=== PATIENT | female | born 1955 | race Caucasian/White ===

== ENCOUNTER → 2019-09-05 12:36 | Outpatient (CLI) | payer MEDICARE, SELFPAY ==
--- NOTE | ~2019-09-05 | MM_ITS ---
EXAMINATION: MM screening jose miguel BI w veronique HISTORY: Screening mammogram TECHNIQUE: Craniocaudal and mediolateral oblique 3-D tomosynthesis images were obtained and synthetic 2-D images were generated. CAD analysis was submitted and interpreted. COMPARISON: Comparison to multiple prior studies sequentially, with oldest reviewed study dated 2015. BREAST PARENCHYMAL COMPOSITION: The breasts are almost entirely fatty. FINDINGS: There is no evidence of suspicious mass, calcification, or architectural distortion to sugg est malignancy in either breast. There has been no suspicious interval change. IMPRESSION: 1. No mammographic evidence of malignancy. 2. Recommend routine screening mammography in one year. BI-RADS Category 1: Negative Reviewed, dictated and finalized at location D.
== END ==
PROVIDERS: Visit Provider Nurse Practitioner
DX: Z12.31 Encounter for screening mammogram for malignant neoplasm of breast (principal)
CPT/HCPCS: 77063; 77067

== ENCOUNTER 2020-02-01 11:39 | Outpatient (CLI) | payer MEDICARE, SELFPAY ==
--- NOTE | ~2020-02-01 | XR_ITS ---
EXAMINATION: XR knee RT 3V DATE: 02/01/2020 12:07 INDICATION: Chronic right knee pain. TECHNIQUE: 3 views of right knee were obtained. COMPARISON: Right knee radiographs 09/18/2014 FINDINGS: Bone alignment is normal. No fracture. There is mild osteoarthritis of medial and patellofe moral compartments. No knee joint effusion. IMPRESSION: 1. Mild right knee osteoarthritis. Reviewed, dictated and finalized at location B.
== END 2020-02-01 11:40 | disposition home or self-care (01) ==
PROVIDERS: PCP Internal Medicine; Visit Provider Clinical Nurse Specialist
DX: M25.569 Pain in unspecified knee (principal); M17.11 Unilateral primary osteoarthritis, right knee
CPT/HCPCS: 73562

== ENCOUNTER 2020-05-13 13:44 | Outpatient (CLI) | payer MEDICARE, SELFPAY ==
--- NOTE | ~2020-05-13 | CT_ITS ---
EXAMINATION:CT lung screening DATE: 05/13/2020 13:58 INDICATION: Personal history of tobacco dependence. Smoker who quit 9 years ago with 30 pack year his tory. TECHNIQUE: Computed tomography (CT) of the chest was performed without intravenous contrast. Automate d exposure control and iterative reconstruction technique were employed. The dose-length product (DLP ) was 266.77 mGy-cm. COMPARISON: None. FINDINGS: There is moderate emphysema. There is mild atelectasis bilaterally. There is a 5 mm nodule in right middle lobe. A calcified right lung nodule and calcified mediastinal lymph nodes are consist ent with old granulomatous disease. No pleural effusion. The heart size is normal. There are coronary artery calcifications. No pericardial effusion. There is a 12 mm mass in left adrenal gland measurin g low-attenuation, consistent with an adenoma. There is mild thoracic spondylosis. There is mild associate professor of archaeology simona anterior wedging of multiple vertebral bodies. IMPRESSION: 1. Lung-RADS category 2: Benign appearance or behavior. Continue annual screening with noncontrast lo w-dose chest CT in 12 months. Reviewed, dictated and finalized at location A. TY MANAGER IMPRESSION: 1. Lung-RADS category 2: Benign appearance or behavior. Continue annual screeni ng with noncontrast low-dose chest CT in 12 months.
== END 2020-05-13 13:45 | disposition home or self-care (01) ==
PROVIDERS: PCP Internal Medicine; Visit Provider Clinical Nurse Specialist
DX: Z12.2 Encounter for screening for malignant neoplasm of respiratory organs (principal); Z87.891 Personal history of nicotine dependence
CPT/HCPCS: G0297

== ENCOUNTER 2021-04-25 11:19 | Outpatient (CLI) | payer MEDICARE, SELFPAY ==
--- NOTE | ~2021-04-25 | MR_ITS ---
EXAMINATION: MR lumbar spine wo con DATE: 04/25/2021 12:12 INDICATION: Lumbar radiculopathy. Chronic low back pain. TECHNIQUE: Magnetic resonance imaging (MRI) of the lumbar spine was performed without intravenous con trast. Sequences included sagittal T2-weighted FSE, sagittal T2-weighted FS FSE, sagittal T1-weighted FSE, and axial T2-weighted FSE. COMPARISON: Lumbar spine MRI 08/09/2017 FINDINGS: There is 3 mm retrolisthesis of L4 on L5. There is mild chronic anterior wedging of T12, L1 , L2, and L3 vertebral bodies. There is mildly decreased disc height at L1-L2 and severely decreased disc height at L4-L5 with endplate remodeling. The distal spinal cord signal intensity is normal. The conus medullaris is at T12-L1. The following disc levels are specifically discussed: L1-L2: The disc is bulging and has an annular fissure. There is mild bilateral facet joint osteoarthr itis. There is mild bilateral neural foraminal stenosis. There is mild central canal stenosis. L2-L3: The disc is mildly bulging. There is severe bilateral facet joint osteoarthritis. There is mil d bilateral neural foraminal stenosis. There is no central canal stenosis. L3-L4: The disc is mildly bulging. There is severe bilateral facet joint osteoarthritis. There is mod erate right and mild left neural foraminal stenosis. There is mild central canal stenosis. L4-L5: The disc is bulging and has an annular fissure. There is mild right and moderate left facet mendez int osteoarthritis. There is moderate bilateral neural foraminal stenosis. There is severe central ca nal stenosis. L5-S1: The disc does not extend beyond the endplate margin. There is severe right and moderate left f acet joint osteoarthritis. There is mild bilateral neural foraminal stenosis. There is no central can al stenosis. IMPRESSION: 1. Severe lumbar spondylosis, worst at L4-L5, stable from 08/09/2017. Reviewed, dictated and finalized at location A. P MIXER
== END 2021-04-25 11:20 ==
LOC: MICIMG 11:20
PROVIDERS: Visit Provider Nurse Practitioner Adult Health
DX: M54.16 Radiculopathy, lumbar region (principal); M47.816 Spondylosis without myelopathy or radiculopathy, lumbar region
CPT/HCPCS: 72148

== ENCOUNTER 2021-05-19 12:13 | Outpatient (CLI) | payer MEDICARE, SELFPAY ==
--- NOTE | ~2021-05-19 | CT_ITS ---
EXAMINATION: CT lung screening DATE: 05/19/2021 12:40 INDICATION: Personal history of nicotine dependence TECHNIQUE: Computed tomography (CT) of the chest was performed without intravenous contrast. The dose -length product was 221.82 mGy-cm. Automated exposure control and iterative reconstruction technique were employed. COMPARISON: CT dated 05/13/2020 FINDINGS: Heart size normal. No significant pleural or pericardial effusion. No thoracic lymphadenopa thy. Mild atherosclerosis. Upper abdomen is unremarkable. There is moderate-severe emphysema. Stable 4-5 mm right middle lobe nodule. There is a 3 mm left upper lobe nodule, unchanged. No new pulmonary nodules or masses. No endobronchial lesions. No pneumothorax. No focal airspace consolidation. There are multiple mild wedge deformities of the lower thoracic spine, likely chronic. No acute osseous abn ormality. Mild thoracic spondylosis. IMPRESSION: 1. Lung-RADS category 2: Benign appearance or behavior. Continue annual screening with noncontrast lo w-dose chest CT in 12 months. Reviewed, dictated and finalized at location B. LLITE DISH TECHNICIAN IMPRESSION: 1. Lung-RADS category 2: Benign appearance or behavior. Continue annual screeni ng with noncontrast low-dose chest CT in 12 months.
== END 2021-05-19 12:14 | disposition home or self-care (01) ==
PROVIDERS: PCP Internal Medicine; Visit Provider Nurse Practitioner
DX: Z12.2 Encounter for screening for malignant neoplasm of respiratory organs (principal); Z87.891 Personal history of nicotine dependence
CPT/HCPCS: 71271

== ENCOUNTER → 2021-06-02 11:32 | Outpatient (CLI) | payer MEDICARE, SELFPAY ==
--- NOTE | ~2021-06-02 | MM_ITS ---
EXAMINATION: MM screening [facility] BI w veronique HISTORY: Screening mammogram TECHNIQUE: Craniocaudal and mediolateral oblique 3-D tomosynthesis images were obtained and synthetic 2-D images were generated. CAD analysis was submitted and interpreted. COMPARISON: 09/05/2019, 02/23/2018, 10/07/2015 BREAST PARENCHYMAL COMPOSITION: The breasts are almost entirely fatty. FINDINGS: There is no evidence of suspicious mass, calcification, or architectural distortion to sugg est malignancy in either breast. There has been no suspicious interval change. IMPRESSION: 1. No mammographic evidence of malignancy. 2. Recommend routine screening mammography in one year. BI-RADS Category 1: Negative Reviewed, dictated and finalized at location A. MAKER MACHINE TENDER
== END ==
PROVIDERS: PCP Internal Medicine; Visit Provider Nurse Practitioner
DX: Z12.31 Encounter for screening mammogram for malignant neoplasm of breast (principal)
CPT/HCPCS: 77063; 77067

== ENCOUNTER → 2021-08-28 12:43 | Outpatient (CLI) | payer MEDICARE, SELFPAY ==
--- NOTE | ~2021-08-28 | DEXA_ITS ---
Bone Density Report Name: BRENDA HUERTA Age: 66 Sex: Female Ethnicity: White Date of : 1955 Indication: osteopenia; height loss; postmenopausal Referring Provider: Emily Rinaldi Study: Bone densitometry was performed. Exam Date: August 28, 2021 Accession number: [id number] Bone Density: Region BMD T-score Z-score Classification AP Spine (L1-L4) 0.991 -0.5 1.5 Normal Femoral Neck (Left) 0.550 -2.7 -1.0 Osteoporosis Total Hip (Left) 0.865 -0.6 0.8 Normal Femoral Neck (Right) 0.767 -0.7 1.0 Normal Total Hip (Right) 0.792 -1.2 0.2 Osteopenia Total Hip Mean 0.829 -0.9 0.5 Normal World Health Organization criteria for BMD impression classify patients as: Normal (T-score at or above -1.0), Osteopenia (T-score between -1.0 and -2.5), or Osteoporosis (T-score at or below -2.5). 10-year Fracture Risk: FRAX not reported because: Some T-score for Spine Total or Hip Total or Femoral Neck at or below -2.5 Previous Exams: Region Exam Age BMD T-score BMD Change BMD Change Date g/cm2 vs Baseline vs Previous AP Spine(L1-L4) 08/28/2021 66 0.991 -0.5 0.039 0.039 10/07/2015 60 0.952 -0.9 Total Hip(Left) 08/28/2021 66 0.865 -0.6 -0.008 -0.008 10/07/2015 60 0.873 -0.6 Total Hip(Right) 08/28/2021 66 0.792 -1.2 0.008 0.008 10/07/2015 60 0.784 -1.3 *Denotes significance at 95% confidence level, LSC for AP Spine = 0.022 g/cm2, LSC for Total Hip = 0.027 g/cm2 Clinical Information Provided by Patient: Has used the following medications: Vitamin D, LEVOTHYROXINE Patient maximum height was 67.0 Menopause Age: 48 No regular weight bearing exercise Drinks caffeinated beverages Onset of menses at age 9 Number of children 2 Impression: The patient has osteoporosis, based on the Left Femoral Neck T-score. No significant bone loss was observed. Discussion: INCREASED RISK OF FRACTURE. BONE DENSITY IS UNDESIRABLY LOW AT ONE OR MORE SKELETAL SITES, CONSISTENT WITH POSTMENOPAUSAL OSTEOPOROSIS. This patient's lowest T-score meets the World Health Organization's (WHO) criteria for osteoporosis at one or more sites (T-score -2.5 or below). In untreated patients, the risk of osteoporotic fracture increases approximately two-fold for each 1.0 SD decrease in T-score. Low bone density is not the only risk factor for fracture; also consider factors such as patient's age, frailty or poor health, risk of fall
== END ==
PROVIDERS: PCP Internal Medicine; Visit Provider Nurse Practitioner
DX: Z78.0 Asymptomatic menopausal state (principal); M81.0 Age-related osteoporosis without current pathological fracture; M85.851 Other specified disorders of bone density and structure, right thigh
CPT/HCPCS: 77080

== ENCOUNTER → 2022-06-04 14:50 | Outpatient (CLI) | payer MEDICARE, SELFPAY ==
--- NOTE | ~2022-06-04 | CT_ITS ---
EXAMINATION: CT lung screening DATE: 06/04/2022 15:07 INDICATION: Personal history of nicotine dependence, prior smoker with 30 pack year history TECHNIQUE: Computed tomography (CT) of the chest was performed without intravenous contrast. The dose -length product (DLP) was 198.83 mGy-cm. Automated exposure control and iterative reconstruction tech 911 View were employed. COMPARISON: 05/19/2021 FINDINGS: There is severe emphysema. There is a 4 mm nodule of the right middle lobe. No new pulmonar y nodules are identified. No pleural effusion or pneumothorax. No pathologically enlarged thoracic ly mph nodes are identified. The heart size is normal. There are healing anterolateral fractures of the right fourth and fifth ribs. Calcified pulmonary nodules and calcified mediastinal lymph nodes are co nsistent with old granulomatous disease. There is mild thoracic spondylosis. IMPRESSION: 1. Lung-RADS category 2: Benign appearance or behavior. Continue annual screening with noncontrast lo w-dose chest CT in 12 months. Reviewed, dictated and finalized at location A. MAKER PLASTIC MOLDS IMPRESSION: 1. Lung-RADS category 2: Benign appearance or behavior. Continue annual screeni ng with noncontrast low-dose chest CT in 12 months.
== END ==
PROVIDERS: PCP Internal Medicine; Visit Provider Nurse Practitioner
DX: Z12.2 Encounter for screening for malignant neoplasm of respiratory organs (principal); Z87.891 Personal history of nicotine dependence
CPT/HCPCS: 71271

== ENCOUNTER 2022-09-01 10:08 | Outpatient (CLI) | payer MEDICARE, SELFPAY ==
--- NOTE | ~2022-09-01 | XR_ITS ---
EXAMINATION: XR scoliosis survey, XR lumbar spine min 4V DATE: 09/01/2022 10:54 INDICATION: Chronic back pain. Right hip replacement. TECHNIQUE: 1. Anteroposterior and lateral views of the spine recheck obtained on 3 separate overlapping images o f the cervical, thoracic and lumbar spine. 2. Anteroposterior and lateral in neutral, flexion and extension views of the lumbar spine, and cone- down lateral view of the lumbosacral junction were obtained. COMPARISON: Lumbar spine MR dated 04/25/2021 FINDINGS: Scoliosis series: 3 degree rightward pelvic tilt with the right iliac crest approximately 8 mm higher than the left. Th ere is approximately 5 degree rightward tilt of the spine without evident scoliosis. Mild upper thora cic kyphosis with chronic appearing mild anterior wedging of a few mid thoracic vertebral bodies. Mil d cervical and thoracic spondylosis. Partially visualized right total hip arthroplasty which appears in near-anatomic alignment. Patient is edentulous. Lungs appear clear with respiratory motion blurrin g at the lung bases. No pleural effusion or pneumothorax. Lumbar spine: Partial straightening of the normal lumbar lordosis with mildly decreased motion with flexion and ext ension. Vertebral body heights are normal. Moderate to severe disc height loss at L4-L5. Mild disc he ight loss at L5-S1. IMPRESSION: 1. Mild rightward pelvic tilt with similar mild degree of rightward tilt of the spine and AP imaging without scoliosis. 2. Mild thoracic kyphosis with mild anterior wedging of a few mid thoracic vertebral bodies. 3. Moderate to severe spondylosis at L4-L5. Otherwise mild cervical, thoracic and lumbar spondylosis. Reviewed, dictated and finalized at location B. IMPRESSION: 1. Mild rightward pelvic tilt with similar mild degree of rightward tilt of the spine and AP imaging without scoliosis. 2. Mild thoracic kyphosis with mild anterior wedging of a few mid thoracic vert ebral bodies. 3. Moderate to severe spondylosis at L4-L5. Otherwise mild cervical, thoracic a nd lumbar spondylosis.
== END 2022-09-01 10:09 | disposition home or self-care (01) ==
PROVIDERS: PCP Internal Medicine; Visit Provider Neurological Surgery
DX: M47.896 Other spondylosis, lumbar region (principal)
CPT/HCPCS: 72082; 72110

== ENCOUNTER 2022-10-07 14:38 | Outpatient (CLI) | payer MEDICARE, SELFPAY ==
--- NOTE | ~2022-10-07 | MR_ITS ---
MRI of the lumbar spine Clinical History: Stenosis Technique: Axial T2-weighted images, and sagittal T1-weighted, T2-weighted, and T2 fat-sat images wer e acquired. COMPARISON: 04/25/2021 Findings: There is no fracture or subluxation of the lumbar spine. Vertebral bodies maintain normal h eight and alignment. No suspicious bone marrow signal abnormality seen. At L1-L2, there is mild to moderate degenerative disc narrowing with mild disc bulge and mild facet j oint hypertrophy. No spinal canal stenosis or neural foraminal narrowing. At L2-L3, there is moderate to advanced facet arthropathy bilaterally. No significant disc bulge or h erniation. No spinal canal stenosis. There is mild right neural foraminal narrowing. Left neural fora men preserved. At L3-L4, there is diffuse disc bulge and advanced facet arthropathy. There is moderate thecal sac co mpression. There is mild bilateral neural foraminal narrowing, right worse than left. At L4-L5, there is advanced degenerative disc narrowing. Disc bulge and facet arthropathy result in s evere spinal canal stenosis/thecal sac compression. There is severe left neural foraminal narrowing a nd moderate to severe right neural foraminal narrowing. At L5-S1, there is mild disc bulge with bilateral facet arthropathy, right worse than left. No hernan spinal canal stenosis. Probable mild bilateral neural foraminal narrowing present. Paravertebral soft tissues are unremarkable. Impression: Multifactorial severe spinal canal stenosis/thecal sac compression L4-L5, with advanced bilateral steve ral foraminal narrowing. Multifactorial moderate thecal sac compression L3-L4, with bilateral mild neural foraminal narrowing. Additional areas of neural foraminal narrowing, as detailed above. Reviewed, dictated and finalized at [facility]. Impression: Multifactorial severe spinal canal stenosis/thecal sac compression L4-L5, with advanced bilateral neural foraminal narrowing. Multifactorial moderate thecal sac compression L3-L4, with bilateral mild neura l foraminal narrowing. Additional areas of neural foraminal narrowing, as detailed above.
== END 2022-10-07 14:39 ==
LOC: MICIMG 14:39
PROVIDERS: PCP Internal Medicine; Visit Provider Neurological Surgery
DX: M48.062 Spinal stenosis, lumbar region with neurogenic claudication (principal); G95.20 Unspecified cord compression; Z96.641 Presence of right artificial hip joint
CPT/HCPCS: 72148

== ENCOUNTER → 2022-10-26 16:00 | Outpatient (CLI) | payer MEDICARE, SELFPAY ==
--- NOTE | ~2022-10-26 | MM_ITS ---
EXAMINATION: MM screening jose miguel BI w veronique HISTORY: Screening mammogram TECHNIQUE: Craniocaudal and mediolateral oblique 3-D tomosynthesis images were obtained and synthetic 2-D images were generated. CAD analysis was submitted and interpreted. COMPARISON: 06/02/2021, 09/05/2019, 02/23/2018 BREAST PARENCHYMAL COMPOSITION:The breasts are almost entirely fatty FINDINGS: No suspicious mass, calcification, or architectural distortion are identified in either leonides ast to suggest malignancy. There has been no suspicious interval change. IMPRESSION: No mammographic evidence of malignancy. Recommend routine screening mammography in one year. BI-RADS Category 1: Negative Reviewed, dictated and finalized at location .
== END ==
PROVIDERS: PCP Internal Medicine; Visit Provider Internal Medicine
DX: Z12.31 Encounter for screening mammogram for malignant neoplasm of breast (principal)
CPT/HCPCS: 77063; 77067

== ENCOUNTER 2023-02-14 07:37 | Outpatient (CLI) | payer MEDICARE, SELFPAY ==
--- NOTE | 2023-02-14 12:51 | WPDPFTINT ---
PFT Procedure Performed PFT Procedure Performed Plethysmography (Lung Vol) Diffusing Cap (DLCO) Flow Vol Loop Spirometry w/o Bronchodil PFT Interpretation This is a pulmonary function test with spirometry, plethysmography and diffusing capacity. The test was performed and results interpreted in accordance with the 2019 and 2005 ATS/ERS Task Force guidelines respectively using the Global Lung Function Initiative-2012 reference equations. Patient demonstrated good effort and cooperation. Reproducibility criteria were met. The quality of the spirometry maneuver was Grade A. Findings: Spirometry: There is decrease maximal expiratory airflow at all lung volumes with concave expiratory flow tracing. The contour the inspiratory flow tracing is normal. The FVC is 2.18 L, 70% predicted. The FEV1 is 1.03 L, 43% predicted. The FEV1: FVC ratio is 47%. Plethysmography: The total lung capacity is 4.66 L, 87% predicted. The functional residual capacity is 3.26 L, 106% predicted. The residual volume is 2.48 L, 109% predicted. Diffusing capacity: The diffusing capacity unadjusted for hemoglobin and carboxyhemoglobin is 13.1, 61% predicted. The diffusing capacity adjusted for alveolar volume is 4.20, 100% predicted. Impression: There is a severe obstructive abnormality. Lung volumes are normal. The diffusing capacity unadjusted for hemoglobin and carboxyhemoglobin is mildly decreased and normalizes when adjusted for alveolar volume. There are no prior studies for comparison
== END 2023-02-14 07:38 | disposition home or self-care (01) ==
PROVIDERS: PCP Internal Medicine; Visit Provider Internal Medicine
DX: J44.9 Chronic obstructive pulmonary disease, unspecified (principal); R94.2 Abnormal results of pulmonary function studies
CPT/HCPCS: 94375; 94726; 94729

== ENCOUNTER 2023-03-02 08:52 | Outpatient (CLI) | payer MEDICARE, SELFPAY ==
--- NOTE | ~2023-03-02 | NM_ITS ---
EXAMINATION: NM harry stress w perfusion DATE: 03/02/2023 11:35 INDICATION: Abnormal electrocardiogram. Preop. TECHNIQUE: Rest images were obtained following intravenous administration of 10.9 mCi Tc99m tetrofosm in (Myoview). The patient was infused intravenously with Lexiscan (regadenoson). Then, 34.5 mCi Tc99m tetrofosmin (Myoview) was administered intravenously, and stress images were obtained. Data was dre nstructed into short axis and horizontal and vertical long axis SPECT images. Gated SPECT images were also obtained. COMPARISON: Myocardial perfusion imaging 02/01/2019 FINDINGS: There is no definite reversible or fixed perfusion abnormality to suggest ischemia or infar ction. There is no segmental wall motion abnormality. Left ventricular ejection fraction measures > 70%. IMPRESSION: 1. No definite ischemia or infarct. 2. Normal left ventricular ejection fraction measuring >70%. Reviewed, dictated and finalized at location A.
--- NOTE | 2023-03-02 09:25 | EST_ITS ---
Patient Info Name: Francia Bradley Age: 67 years : 1955 Gender: Female Ht: 66 in Wt: 230 lbs BSA: 2.25 m2 HR: 65 bpm BP: 128 / 82 mmHg Exam Date: 03/02/2023 10:04 AM Exam Location: [facility] Stress Patient Status: Outpatient Admit Date: 03/02/2023 Staff Ordering Physician: Avila Gomez DO Attending Provider: Avila Gomez DO Exercise Technologist: Dayanna Dawson RDCS Exercise Physician: Addi Rosenbaum DO Exam Type: CA stress harry w NM Study Info A regadenoson stress test was performed. Summary 1. 1. Negative lexiscan stress test for ischemic ST changes by ECG criteria. 2. 2. Stable hemodynamics throughout the test. 3. 3. Nuclear scan to follow and will be reported separately. Please correlate with it. 4. 4. Patient informed of the above results. Protocol: Lexiscan Stress ECG Details Stage: REST Duration (min): 3 min : 51 sec HR (bpm): 61 SBP (mmHg): 126 DBP (mmHg): 82 Stage: REST Duration (min): 8 min : 59 sec HR (bpm): 63 SBP (mmHg): 126 DBP (mmHg): 82 Stage: STAGE 1 Duration (min): 1 min : 0 sec HR (bpm): 66 SBP (mmHg): 125 DBP (mmHg): 87 Stage: RECOVERY Duration (min): 1 min : 0 sec HR (bpm): 84 SBP (mmHg): 125 DBP (mmHg): 87 Stage: RECOVERY Duration (min): 2 min : 0 sec HR (bpm): 86 SBP (mmHg): 125 DBP (mmHg): 87 Stage: RECOVERY Duration (min): 2 min : 29 sec HR (bpm): 83 SBP (mmHg): 119 DBP (mmHg): 89 Rest HR: 63 bpm Peak HR: 86 bpm Rest Sys BP: 126 mmHg Peak Sys BP: 125 mmHg Max Pred HR: 151 bpm % Max Pred HR: 57 % Target HR: 128 bpm Max RPP: 10,750 bpm*mmHg Termination Reason: Completed protocol Cardiac Symptoms: Shortness of breath Total Time: 1 min : 0 sec Rest Gallardo BP: 82 mmHg Peak Gallardo BP: 87 mmHg Total Dose: 0.4 mg Resting ECG Sinus rhythm, RBBB, cannot r/o septal infarct, age indeterminate. Stress ECG No ST changes. Arrhythmias None. Report Signatures
== END 2023-03-02 08:53 | disposition home or self-care (01) ==
PROVIDERS: PCP Internal Medicine; Visit Provider Internal Medicine
DX: Z01.818 Encounter for other preprocedural examination (principal); Z91.89 Other specified personal risk factors, not elsewhere classified; R07.9 Chest pain, unspecified
CPT/HCPCS: 78452; 93017; A9502; J2785

== ENCOUNTER 2023-03-03 13:00 | Outpatient (RCR) | payer MEDICARE, SELFPAY ==
[2023-01-18 11:07] VITALS: BMI 37.2
[2023-01-18 13:56] VITALS: BMI 37.2
[2023-03-03 13:12] VITALS: BMI 37.0; BMI 37.2
== END 2023-04-04 11:12 | disposition home or self-care (01) ==
LOC: ANHDMC 13:00
PROVIDERS: PCP Internal Medicine; Visit Provider Internal Medicine
DX: E11.9 Type 2 diabetes mellitus without complications (principal); E66.9 Obesity, unspecified; Z71.3 Dietary counseling and surveillance
CPT/HCPCS: 97802; 97803

== ENCOUNTER → 2023-08-17 14:00 | Outpatient (CLI) | payer MEDICARE, SELFPAY ==
--- NOTE | ~2023-08-17 | CT_ITS ---
EXAMINATION: CT lung screening DATE: 08/17/2023 14:13 INDICATION: Z87.891 - Personal history of nicotine dependence TECHNIQUE: Computed tomography (CT) of the chest was performed without intravenous contrast. Addition al 3D reconstructions utilizing coronal maximum intensity projection (MIP) were performed. Automated exposure control and iterative reconstruction technique were employed. The dose-length product was 20 3.51 mGy-cm. COMPARISON: 06/04/2022 and 05/19/2021 FINDINGS: Moderate to severe emphysema with mild biapical pleural-parenchymal scarring. Unchanged pleural-based 4 mm right middle lobe nodule. Unchanged 3 mm nodule along a linear subpleural atelectasis/scarring in the superior segment of the left lower lobe. No new or enlarging pulmonary nodules, pneumonia, pul monary edema or pleural effusion. Heart size is normal. Atherosclerotic coronary artery calcific loca tion and aortic valve calcific is. Thoracic aorta is normal in caliber. No pathologically enlarged th oracic lymphadenopathy. Mild to moderate thoracic spondylosis. IMPRESSION: 1. Lung-RADS category 2: Benign appearance or behavior. Continue annual screening with noncontrast lo w-dose chest CT in 12 months. Reviewed, dictated and finalized at location B. L BRAIDER IMPRESSION: 1. Lung-RADS category 2: Benign appearance or behavior. Continue annual screeni ng with noncontrast low-dose chest CT in 12 months.
== END ==
PROVIDERS: PCP Internal Medicine; Visit Provider Internal Medicine
DX: Z12.2 Encounter for screening for malignant neoplasm of respiratory organs (principal); Z87.891 Personal history of nicotine dependence
CPT/HCPCS: 71271

== ENCOUNTER 2023-12-13 13:55 | Outpatient (CLI) | payer MEDICARE, SELFPAY ==
--- NOTE | ~2023-12-13 | MM_ITS ---
EXAMINATION: MM screening jose miguel BI w veronique HISTORY: Screening mammogram TECHNIQUE: Craniocaudal and mediolateral oblique 3-D tomosynthesis images were obtained and synthetic 2-D images were generated. CAD analysis was submitted and interpreted. COMPARISON: 10/26/2022, 06/02/2021, 09/05/2019 BREAST PARENCHYMAL COMPOSITION:Not Dense. The breasts are almost entirely fatty FINDINGS: No suspicious mass, calcification, or architectural distortion are identified in either leonides ast to suggest malignancy. There has been no suspicious interval change. IMPRESSION: No mammographic evidence of malignancy. Recommend routine screening mammography in one year. BI-RADS Category 1: Negative Reviewed, dictated and finalized at location .
== END 2023-12-13 13:56 ==
LOC: MICIMG 12-14 06:55
PROVIDERS: PCP Internal Medicine; Visit Provider Internal Medicine
DX: Z12.31 Encounter for screening mammogram for malignant neoplasm of breast (principal)
CPT/HCPCS: 77063; 77067

== ENCOUNTER 2024-02-09 10:10 | Emergency (ER) | payer MEDICARE, MEDICAID, SELFPAY ==
--- NOTE | ~2024-02-09 | XR_ITS ---
EXAMINATION: XR chest 2V DATE: 02/09/2024 10:42 INDICATION: Shortness of breath. Cough. Right-sided pleuritic chest pain. TECHNIQUE: Frontal and lateral views of the chest were obtained. COMPARISON: Chest 2 views 10/06/2016, chest CT 08/17/2023 FINDINGS: There is mild scarring at the lung apices. There are lucencies in the lungs, consistent wit h emphysema. No pleural effusion or pneumothorax. The heart size is normal. There is a chronic compre ssion fracture in mid thoracic spine. There are old healed right rib fractures. IMPRESSION: 1. Mild scarring at the lung apices. 2. Emphysema. Reviewed, dictated and finalized at location A.
--- NOTE | ~2024-02-09 | CT_ITS ---
EXAMINATION:CT diagnostic chest w con DATE: 02/09/2024 12:09 INDICATION: Shortness of breath. TECHNIQUE: Computed tomography (CT) of the chest was performed with 75 mL Omnipaque 350 intravenous c ontrast. Automated exposure control and iterative reconstruction technique were employed. The dose-le ngth product (DLP) was 461.22 mGy-cm. COMPARISON: Chest CT 08/17/2023 FINDINGS: There is moderate emphysema. There is mild atelectasis bilaterally. There is a 4 mm nodule in right middle lobe, benign. No pleural effusion. Calcified right hilar and mediastinal lymph nodes are consistent with old granulomatous disease. The heart size is normal. There are coronary artery ca lcifications. No pericardial effusion. The gallbladder is distended. There is mild chronic anterior w edging of multiple vertebral bodies. There is mild thoracic spondylosis. IMPRESSION: 1. Moderate emphysema. 2. Gallbladder distention, which may be secondary to fasting. Correlate with physical exam to exclude acute cholecystitis. Reviewed, dictated and finalized at location A. IMPRESSION: 1. Moderate emphysema. 2. Gallbladder distention, which may be secondary to fasting. Correlate with ph ysical exam to exclude acute cholecystitis.
[2024-02-09 10:07] VITALS: BP 144/65; PULSE 60; RESP 23; TEMP 36.3; O2SAT 100
--- NOTE | 2024-02-09 10:20 | ECG_ITS ---
Test Date: 2024-02-09 10:17:02 Measurements Intervals [place] Rate: 61 P: 59 [place]: 167 QRS: 94 QRSD: 142 T: 44 QT: 432 QTc: 435 Interpretive Statements SINUS RHYTHM RIGHT BUNDLE BRANCH BLOCK [120+ ms QRS DURATION, UPRIGHT V1, 40+ ms S IN I/aVL/V4/V5/V6] No previous ECG available for comparison Electronically Signed On 02-09-2024 15:13:47 CDT by Gagandeep Landrum M.D.
--- NOTE | 2024-02-09 10:43 | ED.CHESTPAIN ---
HPI - Chest Pain General Chief Complaint: Chest Pain Stated Complaint: CP Time Seen by Provider: 02/09/24 10:17 Source: patient, EMS and old records reviewed Mode of arrival: EMS Limitations: no limitations History of Present Illness HPI narrative: Patient is a 68-year-old female, with PMH of COPD/asthma, DM, HTN, HLD, who presents the ED via EMS with report of shortness of breath. Patient reports having increased difficulty breathing over the last 1 week, states it has been progressively worsening. Reports dyspnea worse with exertion. Reports pain throughout her right sided back/flank region with deep breathing. Pain worse with movement as well. Has not taken anything for pain today. She does report having a mild cough, intermittent wheezing. She has inhalers at home which she has been using. Denies sick contacts. Denies CP, known fevers, hemoptysis, lower extremity pain or swelling. Patient was given ASA 324 mg and 1NTG en route to the ED by EMS w/o change in pleuritic pain. Related Data Home Medications Medication Instructions Recorded Confirmed omega-3 fatty acids 1,000 mg 1,000 mg PO DAILY 01/30/20 12/12/23 capsule (Fish Oil Concentrate) vitamin A 2,400 mcg capsule 2,400 mcg PO DAILY 09/03/21 12/12/23 Beat Root PO 1XD 09/27/23 12/12/23 Allergies Allergy/AdvReac Type Severity Reaction Status Date / Time No Known Allergies Allergy Verified 12/12/23 13:40 Review of Systems Review of Systems: All systems reviewed & are unremarkable except as noted in HPI. All systems reviewed & are unremarkable except as noted in HPI and below PMFSH Past Medical History Medical History Acquired hypothyroidism Chronic lumbar pain COPD (chronic obstructive pulmonary disease) Diabetes mellitus with hyperglycemia History of smoking 30 or more pack years Hypercalcemia Hypertension Knee pain Lumbar radiculopathy Lumbosacral spondylolysis Obesity Osteoarthritis of lumbar spine Osteopenia Type 2 diabetes mellitus without complication, without long-term current use of insulin Vitamin B 12 deficiency Surgical History Surgical History History of right hip replacement 10/15/2021 Family History Family History Father Diabetes mellitus Family history of coronary artery disease Sibling Diabetes mellitus Mother Family history of coronary artery disease Social History Social History Social History: Caffeine-coffee Smoking status: Former smoker Smoking end date: 06/20/10 Alcohol intake: never Do You Feel Safe in your Home?: Yes Lack of Transportation: No Lack of Food: Never True Current Housing: I Have Housing Concerned About Future Housing: No Difficulty Paying Gas/Electric Bills: No Difficulty Paying for Meds: YES Currently Unemployed: Decline to Answer Education: High School Diploma/GED Difficulty w/ Childcare or Family Care: No Spiritual care concerns: No Exam Narrative: GENERAL: elderly, chronically ill-appearing, obese with BMI of 36.7, non-toxic, in no acute distress. HEAD: Normocephalic, atraumatic. RESPIRATORY: Airway patent, respirations nonlabored. Clear to auscultation bilaterally. no significant focal lung sounds. No wheezing heard. No stridor or distress. CARDIOVASCULAR: Regular rate and rhythm without murmurs, rubs, or gallops. ABDOMINAL: Soft, nontender, nondistended. Normoactive BS. MUSCULOSKELETAL: Moves all extremities. No gross deformities. No lower extremity edema. No calf tenderness. TTP throughout right posterior rib cage/back, reproducing pain. No skin changes/rash. SKIN: Warm, dry, normal color. NEURO: A&O X3. Speech clear. Cranial nerves II-XII grossly intact. Steady gait. No ataxic movements. PSYCHIATRIC: Ap
[2024-02-09 10:55] VITALS: PULSE 65; O2SAT 97
[2024-02-09 11:02] LABS: Basophils Absolute Auto 0.1 K/mm3 (0.0-0.1); Basophils Percent Auto 0.7 % (0.2-1.2); Eosinophils Absolute Auto 0.2 K/mm3 (0-0.3); Eosinophils Percent Auto 2.1 % (0-4.4); Hematocrit 45.5 % (37.0-47.0); Hemoglobin 14.4 g/dL (12.0-15.0); Immature Granulocyte Absolute 0.05 K/mm3 (0.00-0.031); Immature Granulocyte Percent A 0.6 % (0-0.5); Lymphocytes Absolute Auto 1.97 K/mm3 (0.9-3.2); Lymphocytes Percent Auto 22.1 % (18.3-44.2); Mean Corpuscular HGB Conc 31.6 g/dl (32-36); Mean Corpuscular Volume 88.3 fl (80-100); Mean Platelet Volume 9.8 fl (7.4-10.4); Monocytes Absolute Auto 0.6 K/mm3 (0.1-0.6); Monocytes Percent Auto 6.3 % (2.6-8.5); Neutrophils Absolute Auto 6.1 K/mm3 (1.3-6.7); Neutrophils Percent Auto 68.2 % (45.5-73.1); Platelet Count Result 327 k/mm3 (150-375); Red Blood Count 5.15 M/mm3 (4.2-5.4); Red Cell Distribution Width 14.5 % (11.5-14.5); White Blood Count 8.9 K/mm3 (4.5-10.0)
[2024-02-09 11:13] LABS: Prothrombin Time 13.5 Seconds (11.1-14.7)
[2024-02-09 11:14] LABS: Partial Thromboplastin Time 26.9 Seconds (22.3-36.8)
[2024-02-09 11:16] LABS: D Dimer 0.39 ug/mL (<0.48)
[2024-02-09 11:20] LABS: Alanine Aminotransferase 20 U/L (6-35); Albumin Level 4.5 g/dL (3.5-5.1); Alkaline Phosphatase 81 U/L (38-126); Anion Gap 9 mmol/L (4-12); Aspartate Amino Transferase 23 U/L (14-36); Bilirubin,Total 0.5 mg/dL (0.2-1.3); Blood Urea Nitrogen 18 mg/dL (7-17); Carbon Dioxide 32 mmol/L (22-30); Chloride 96 mmol/L (98-107); Estimated CRCL calculation 69 ml/min; Estimated Glomerular Filt Rate > 60; Glucose 185 mg/dL (65-110); Magnesium 1.9 mg/dL (1.6-2.3); Potassium 4.3 mmol/L (3.4-5.0); Sodium 137 mmol/L (137-145)
[2024-02-09 11:26] VITALS: BP 149/71; PULSE 66; RESP 13; O2SAT 99
[2024-02-09 11:27] LABS: NT Pro B Type Natriuretic Pept < 20 pg/mL (19.9-100); Troponin I < 0.012 ng/mL (0.000-0.034)
[2024-02-09 11:32] LABS: Add Urine Microscopic? NO; Appearance Urine Clear (Clear); Bilirubin Urine Negative (Negative); Blood Urine Negative (Negative); Color Urine Yellow (Yellow); Glucose Urine UA 3+ mg/dL (Negative); Ketones Urine Negative (Negative); Leukocyte Esterase Ur Negative LEU/UL (Negative); Nitrate Urine Negative (Negative); Protein Urine Negative (Negative); Specific Grav Ur 1.024 (1.001-1.035); Urobilinogen Urine 0.2 mg/dL (<2.0); pH Urine 6.5 (5.0-9.0)
[2024-02-09 11:57] LABS: Influenza A QL RT-PCR Negative (Negative); Influenza B QL RT-PCR Negative (Negative); RSV RNA, RT-PCR Negative (Negative); SARS-CoV-2 RNA PCR Negative (Negative)
[2024-02-09 13:08] VITALS: BP 135/78; PULSE 68; RESP 12; O2SAT 95
[2024-02-09] MEDS: methylPREDNISolone SOD SUCC 125 MG VIAL IV PUSH (13:11)
[2024-02-09] MEDS: KETOROLAC 15 MG/ML VIAL (*BKC) IV PUSH (13:11)
== END 2024-02-09 14:14 | disposition home or self-care (01) ==
PROVIDERS: Emergency Provider Physician Assistant; PCP Internal Medicine
DX: J44.1 Chronic obstructive pulmonary disease with (acute) exacerbation (principal); R09.1 Pleurisy; Z20.822 Contact with and (suspected) exposure to COVID-19; I10 Essential (primary) hypertension; E11.9 Type 2 diabetes mellitus without complications; E03.9 Hypothyroidism, unspecified; E53.8 Deficiency of other specified B group vitamins; M47.816 Spondylosis without myelopathy or radiculopathy, lumbar region; M85.80 Other specified disorders of bone density and structure, unspecified site; Z96.641 Presence of right artificial hip joint; Z87.891 Personal history of nicotine dependence; J43.9 Emphysema, unspecified; K82.8 Other specified diseases of gallbladder
CPT/HCPCS: 36415; 71046; 71260; 80053; 81003; 83735; 83880; 84484; 85025; 85380; 85610; 85730; 87637; 93005; 96374; 96375; 99284; J1885; J2919; Q9967

== ENCOUNTER 2024-02-23 08:26 | Emergency (ER) | payer MEDICARE, MEDICAID, SELFPAY ==
--- NOTE | ~2024-02-23 | CT_ITS ---
Non-contrast CT scan of the Abdomen and Pelvis Clinical indication: Right flank pain Technique: 2.5 mm axial scans were obtained through the abdomen and pelvis without intravenous or or al contrast. Dose reduction technique was used on this scan by utilizing automated exposure control a nd iterative reconstruction technique. The dose-length product (DLP) was 727.84 mGy-cm. Findings: Images through the lung bases reveal no abnormalities. There is no evidence of renal or ureteral calculi. The kidneys and the ureters are nondilated. The liver, spleen, pancreas, gallbladder, and adrenals appear normal. There are atherosclerotic calci fications of the aorta. There is no evidence of bowel obstruction. Small fat-containing umbilical hernia present. Images through the pelvis are mildly degraded by streak artifact from right hip arthroplasty. There i s no evidence of ascites or lymphadenopathy. Urinary bladder unremarkable. No pelvic mass seen. Sever e T8 compression fracture present. Impression: No renal, ureteral, or bladder stone. No hydronephrosis. Severe T8 compression fracture. Small fat-containing umbilical hernia. Reviewed, dictated and finalized at [facility]. Impression: No renal, ureteral, or bladder stone. No hydronephrosis. Severe T8 compression fracture. Small fat-containing umbilical hernia.
[2024-02-23 08:27] VITALS: BP 190/74; PULSE 72; RESP 18; TEMP 36.6; O2SAT 93
--- NOTE | 2024-02-23 09:00 | ED.BACK ---
HPI - Back Pain/Injury General Chief Complaint: Back Pain/Injury Stated Complaint: R flank pain, Time Seen by Provider: 02/23/24 08:51 Source: patient Mode of arrival: ambulatory Limitations: no limitations History of Present Illness HPI Narrative: This is a 68-year-old female who presents to the ED with chief complaint of right flank and right upper back pain x3 weeks. States that she was here 3 weeks ago with a negative workup. States that the pain has somewhat subsided since then but continues to be an issue. No known injury. Reports pain is worse with movements. It goes across the lower back but worse in the right flank. Denies associated chest pain, shortness of breath, cough, urinary symptoms, fevers, chills, nausea, vomiting. Related Data Home Medications Medication Instructions Recorded Confirmed omega-3 fatty acids 1,000 mg 1,000 mg PO DAILY 01/30/20 02/13/24 capsule (Fish Oil Concentrate) vitamin A 2,400 mcg capsule 2,400 mcg PO DAILY 09/03/21 02/13/24 Beat Root PO 1XD 09/27/23 02/13/24 Allergies Allergy/AdvReac Type Severity Reaction Status Date / Time No Known Allergies Allergy Verified 02/13/24 11:03 Review of Systems Review of Systems: All systems as dictated in [facility] Past Medical History Medical History Acquired hypothyroidism Chronic lumbar pain COPD (chronic obstructive pulmonary disease) Diabetes mellitus with hyperglycemia History of smoking 30 or more pack years Hypercalcemia Hypertension Knee pain Lumbar radiculopathy Lumbosacral spondylolysis Obesity Osteoarthritis of lumbar spine Osteopenia Type 2 diabetes mellitus without complication, without long-term current use of insulin Vitamin B 12 deficiency Surgical History Surgical History History of right hip replacement 10/15/2021 Family History Family History Father Diabetes mellitus Family history of coronary artery disease Sibling Diabetes mellitus Mother Family history of coronary artery disease Social History Social History Social History: Caffeine-coffee Smoking status: Former smoker Smoking end date: 06/20/10 Alcohol intake: never Do You Feel Safe in your Home?: Yes Lack of Transportation: No Lack of Food: Never True Current Housing: I Have Housing Concerned About Future Housing: No Difficulty Paying Gas/Electric Bills: No Difficulty Paying for Meds: YES Currently Unemployed: Decline to Answer Education: High School Diploma/GED Difficulty w/ Childcare or Family Care: No Spiritual care concerns: No Exam Narrative: GENERAL: Well-appearing, well-nourished, and in no acute distress. HEAD: Normocephalic, atraumatic. EYES: PERRLA and EOMI. ENT: Nares clear, no rhinorrhea or epistaxis. Mucous membranes moist. Oropharynx without tonsillar hypertrophy exudate or other lesions. NECK: Supple. No adenopathy or masses. CHEST: No respiratory distress. Clear to auscultation. No wheezes rales or rhonchi HEART: Regular rate and rhythm. No murmur heard. Normal peripheral pulses. ABDOMEN: Right flank is focally tender. Negative left flank tenderness. Soft, otherwise nontender, nondistended, normal active bowel sounds. MSK: Normal range of motion. No edema. SKIN: Warm, dry, no rash. NEURO: Alert and oriented x4. No focal deficits. PSYCH: Normal mood and affect. Course Vital Signs Vital signs: Vital Signs Temperature 97.8 F 02/23/24 08:27 Pulse Rate 72 02/23/24 08:27 Respiratory Rate 18 02/23/24 08:27 Blood Pressure 190/74 H 02/23/24 08:27 Pulse Oximetry 93 02/23/24 08:27 Oxygen Delivery Room Air 02/23/24 08:27 Temperature 97.8 F 02/23/24 08:27 Pulse Rate 72 02/23/24 08:27 Respiratory Rate 18 02/23/24 08:27
[2024-02-23] MEDS: MORPHINE SULFATE (*CRX) 4 MG/ML INJ IV PUSH (09:32)
[2024-02-23] MEDS: ONDANSETRON INJ 4 MG/2 ML VIAL IV PUSH (09:32)
[2024-02-23 09:49] LABS: Basophils Absolute Auto 0.1 K/mm3 (0.0-0.1); Basophils Percent Auto 0.6 % (0.2-1.2); Eosinophils Absolute Auto 0.3 K/mm3 (0-0.3); Eosinophils Percent Auto 2.8 % (0-4.4); Hematocrit 47.4 % (37.0-47.0); Hemoglobin 14.8 g/dL (12.0-15.0); Immature Granulocyte Absolute 0.05 K/mm3 (0.00-0.031); Immature Granulocyte Percent A 0.5 % (0-0.5); Lymphocytes Absolute Auto 2.31 K/mm3 (0.9-3.2); Lymphocytes Percent Auto 21.8 % (18.3-44.2); Mean Corpuscular HGB Conc 31.2 g/dl (32-36); Mean Corpuscular Volume 89.8 fl (80-100); Mean Platelet Volume 10.2 fl (7.4-10.4); Monocytes Absolute Auto 0.6 K/mm3 (0.1-0.6); Monocytes Percent Auto 5.9 % (2.6-8.5); Neutrophils Absolute Auto 7.3 K/mm3 (1.3-6.7); Neutrophils Percent Auto 68.4 % (45.5-73.1); Platelet Count Result 317 k/mm3 (150-375); Red Blood Count 5.28 M/mm3 (4.2-5.4); Red Cell Distribution Width 14.9 % (11.5-14.5); White Blood Count 10.6 K/mm3 (4.5-10.0)
[2024-02-23 09:58] LABS: Alanine Aminotransferase 22 U/L (6-35); Albumin Level 4.7 g/dL (3.5-5.1); Alkaline Phosphatase 99 U/L (38-126); Anion Gap 9 mmol/L (4-12); Aspartate Amino Transferase 26 U/L (14-36); Bilirubin,Total 0.5 mg/dL (0.2-1.3); Blood Urea Nitrogen 17 mg/dL (7-17); Calcium 10.1 mg/dL (8.4-10.2); Carbon Dioxide 31 mmol/L (22-30); Chloride 99 mmol/L (98-107); Estimated CRCL calculation 88 ml/min; Estimated Glomerular Filt Rate > 60; Glucose 157 mg/dL (65-110); Lipase 534 U/L (23-300); Potassium 4.4 mmol/L (3.4-5.0); Sodium 139 mmol/L (137-145)
[2024-02-23 10:12] LABS: Add Urine Microscopic? NO; Appearance Urine Clear (Clear); Bilirubin Urine Negative (Negative); Blood Urine Negative (Negative); Color Urine Yellow (Yellow); Glucose Urine UA 3+ mg/dL (Negative); Ketones Urine Negative (Negative); Leukocyte Esterase Ur Negative LEU/UL (Negative); Nitrate Urine Negative (Negative); Protein Urine Negative (Negative); Specific Grav Ur 1.024 (1.001-1.035); Urobilinogen Urine 0.2 mg/dL (<2.0)
== END 2024-02-23 10:36 | disposition home or self-care (01) ==
LOC: ANHED 10:05
PROVIDERS: Emergency Provider Physician Assistant; PCP Internal Medicine
DX: S22.060A Wedge compression fracture of T7-T8 vertebra, initial encounter for closed fracture (principal); X58.XXXA Exposure to other specified factors, initial encounter; J44.9 Chronic obstructive pulmonary disease, unspecified; E11.9 Type 2 diabetes mellitus without complications; E03.9 Hypothyroidism, unspecified; I10 Essential (primary) hypertension; M47.817 Spondylosis without myelopathy or radiculopathy, lumbosacral region; M85.80 Other specified disorders of bone density and structure, unspecified site; E53.8 Deficiency of other specified B group vitamins; E66.9 Obesity, unspecified; Z68.35 Body mass index [BMI] 35.0-35.9, adult; Z87.891 Personal history of nicotine dependence; Z79.84 Long term (current) use of oral hypoglycemic drugs; Z79.51 Long term (current) use of inhaled steroids
CPT/HCPCS: 36415; 74176; 80053; 81003; 83690; 85025; 96374; 96375; 99284; J2270; J2405

== ENCOUNTER 2024-03-16 09:41 | Outpatient (CLI) | payer MEDICARE, MEDICAID, SELFPAY ==
--- NOTE | 2024-03-16 09:45 | ECHO_ITS ---
Patient Info Name: Francia Bradley Age: 68 years : 1955 Gender: Female Ht: 66 in Wt: 223 lbs BSA: 2.21 m2 HR: 63 bpm BP: 159 / 84 mmHg Heart Rhythm: Sinus Rhythm Technical Quality: Poor Exam Date: 03/16/2024 10:12 AM Exam Location: Echo Lab Patient Status: Outpatient Admit Date: 03/16/2024 Staff Ordering Physician: Avila Gomez DO Band Singer: Leroy Fuentes RDCS Attending Provider: Avila Gomez DO Referring Physician: Jason SALAS; Exam Type: CA echo doppler color flow Study Info Indications - other forms of dyspnea Complete two-dimensional, color flow and Doppler transthoracic echocardiogram is performed. Reason for Poor Study: poor echocardiographic windows Summary 1. Complete two-dimensional, color flow and Doppler transthoracic echocardiogram is performed. 2. Left ventricular chamber dimension is normal. 3. Left ventricular systolic function is normal, estimated at 60-65%. 4. The left ventricular diastolic function is grade I diastolic dysfunction. 5. E/e' 7 is not elevated. 6. There is mild aortic valve sclerosis. 7. There is trace aortic valve regurgitation. 8. There is trace mitral valve regurgitation. 9. No pulmonary hypertension, estimated pulmonary arterial systolic pressure is 26 mmHg. Left Ventricle E/e' 7 is not elevated. Left ventricular chamber dimension is normal. Left ventricular systolic function is normal, estimated at 60-65%. The left ventricular diastolic function is grade I diastolic dysfunction. Right Ventricle Right ventricular systolic function is normal and with normal TAPSE 3.3 cm. Right ventricular chamber dimension is normal. Left Atria Left atrial chamber dimension is normal. Right Atria Right atrial chamber dimension is normal. Aortic Valve The aortic valve is trileaflet. There is mild aortic valve sclerosis. There is no aortic valve stenosis. There is trace aortic valve regurgitation. Pulmonic Valve There is no pulmonic regurgitation. Mitral Valve There is no mitral valve stenosis. There is trace mitral valve regurgitation. Tricuspid Valve There is no tricuspid valve regurgitation. No pulmonary hypertension, estimated pulmonary arterial systolic pressure is 26 mmHg. Pericardium/Pleural There is no pericardial effusion. Inferior Vena Cava Normal inferior vena cava with >50% collapse upon inspiration consistent with normal right atrial pressure, 5 mmHg. Aorta The aortic root size at the sinus of Valsalva is normal. Left Ventricular Outflow Tract Name Value Normal LVOT Doppler LVOT Peak Gradient 4 mmHg LVOT Mean Gradient 2 mmHg LVOT VTI 23 cm LVOT VTI/AV VTI Ratio 1.0 Pulmonic Valve Name Value Normal PV Doppler PV Peak Gradient 2 mmHg Mitral Valve Name Value Normal
== END 2024-03-16 09:42 | disposition home or self-care (01) ==
LOC: ANHCARD 09:43
PROVIDERS: PCP Internal Medicine; Visit Provider Internal Medicine
DX: R06.09 Other forms of dyspnea (principal); I51.89 Other ill-defined heart diseases; I35.8 Other nonrheumatic aortic valve disorders
CPT/HCPCS: 93306

== ENCOUNTER 2024-03-22 10:49 | Outpatient (CLI) | payer MEDICARE, MEDICAID, SELFPAY ==
--- NOTE | ~2024-03-22 | DEXA_ITS ---
Bone Density Report Name: BRENDA HUERTA Age: 68 Sex: Female Ethnicity: White Date of : 1955 Indication: postmenopausal; screening for osteoporosis; prior fracture; Referring Provider: ISA CARMONA Study: Bone densitometry was performed. Exam Date: March 22, 2024 Accession number: [id number] Bone Density: Region BMD T-score Z-score Classification AP Spine(L1, L2, L3) 0.798 -2.0 0.1 Osteopenia Femoral Neck (Left) 0.607 -2.2 -0.3 Osteopenia Total Hip (Left) 0.813 -1.1 0.5 Osteopenia World Health Organization criteria for BMD impression classify patients as: Normal (T-score at or above -1.0), Osteopenia (T-score between -1.0 and -2.5), or Osteoporosis (T-score at or below -2.5). 10-year Fracture Risk: FRAX not reported because: Prior hip or vertebral fracture Clinical Information Provided by Patient: Have had a previous hip or vertebral fracture Has had a low trauma fracture Has used the following medications: Vitamin D Patient maximum height was 66 Menopause Age: 48 No regular weight bearing exercise Drinks caffeinated beverages Onset of menses at age 10 Number of children 2 Impression: The patient has low bone mass, based on the Left Femoral Neck T-score. The patient has risk factors, including: previous fracture. Discussion: INCREASED RISK OF FRACTURE DUE TO HISTORY OF FRACTURE. The patient's previous fracture puts the patient at high risk of a future fracture. In untreated patients, the risk of osteoporotic fracture increases approximately two-fold for each 1.0 SD decrease in T-score. Low bone density is not the only risk factor for fracture; also consider factors such as patient's age, frailty or poor health, risk of falling, risk of injury, previous osteoporotic fracture, family history of osteoporosis, cigarette smoking, low body weight, etc. Not everyone with a low trauma fracture has osteoporosis; osteomalacia and other metabolic bone disorders should also be considered. Patients who have osteoporosis should be evaluated for specific diseases and conditions (secondary causes) that may cause or contribute to bone loss and fracture risk. National Osteoporosis Foundation (NOF) recommends pharmacologic intervention for patients with a prior hip or vertebral fracture regardless of BMD T-score. The patient should follow a healthful lifestyle (good nutrition with adequate calcium and vitamin D, and appropriate weight-bearing exercise). Follow-Up: Consider a repeat BMD and Vertebral Fracture Assessment (VFA) exam in 2 years or sooner if medically necessary, to reassess this patient's status. Reported by: ROLANDA on 03/22/2024 11:15:00 AM. Reviewed, dictated and finalized at location AThomas DIAZ
== END 2024-03-22 10:50 | disposition home or self-care (01) ==
LOC: CHSIMG 10:50
PROVIDERS: PCP Internal Medicine; Visit Provider Internal Medicine
DX: Z78.0 Asymptomatic menopausal state (principal); M85.89 Other specified disorders of bone density and structure, multiple sites
CPT/HCPCS: 77080

== ENCOUNTER 2024-04-19 12:52 | Outpatient (CLI) | payer MEDICARE, MEDICAID, SELFPAY ==
--- NOTE | ~2024-04-19 | XR_ITS ---
3 VIEWS THORACIC SPINE Ordering provider: Kim Liriano MD History: . S22.000A - Wedge compression fracture of unspecified thor... . Comparison: None. FINDINGS: VERTEBRAL BODIES: Compression fracture with loss of volume about 70% is seen in T8 which may be acute or chronic. MRI evaluation advised.. Otherwise, Normal height and alignment. No visible subluxation. Degenerative changes of the spine. DISK SPACES: Narrowing of multiple disc spaces in the upper thoracic area. SOFT TISSUES: Atherosclerotic changes of the aorta. IMPRESSION: Indeterminate age compression fracture with sclerotic changes in T8 further evaluation with MRI is ad vised. The sclerotic changes may indicate pathological fracture. Clinical correlation advised. Reviewed, dictated and finalized at location A. IMPRESSION: Indeterminate age compression fracture with sclerotic changes in T8 further mary luation with MRI is advised. The sclerotic changes may indicate pathological fr acture. Clinical correlation advised.
== END 2024-04-19 12:53 | disposition home or self-care (01) ==
PROVIDERS: PCP Internal Medicine; Visit Provider Neurological Surgery
DX: S22.000A Wedge compression fracture of unspecified thoracic vertebra, initial encounter for closed fracture (principal); X58.XXXA Exposure to other specified factors, initial encounter
CPT/HCPCS: 72072

== ENCOUNTER 2024-12-14 13:14 | Outpatient (CLI) | payer MEDICARE, MEDICAID, SELFPAY ==
--- NOTE | ~2024-12-14 | MM_ITS ---
EXAMINATION: MM screening jose miguel BI w veronique HISTORY: Screening mammogram TECHNIQUE: Craniocaudal and mediolateral oblique 3-D tomosynthesis images were obtained and synthetic 2-D images were generated. CAD analysis was submitted and interpreted. COMPARISON: 12/13/2023, 10/26/2022, 06/02/2021 BREAST PARENCHYMAL COMPOSITION:Not Dense. The breasts are almost entirely fatty FINDINGS: No suspicious mass, calcification, or architectural distortion are identified in either leonides ast to suggest malignancy. There has been no suspicious interval change. IMPRESSION: No mammographic evidence of malignancy. Recommend routine screening mammography in one year. BI-RADS Category 1: Negative Reviewed, dictated and finalized at location .
== END 2024-12-14 13:15 | disposition home or self-care (01) ==
LOC: MICIMG 13:15
PROVIDERS: PCP Internal Medicine; Visit Provider Internal Medicine
DX: Z12.31 Encounter for screening mammogram for malignant neoplasm of breast (principal)
CPT/HCPCS: 77063; 77067

== ENCOUNTER 2025-03-08 11:11 | Outpatient (CLI) | payer MEDICARE, MEDICAID, SELFPAY ==
--- NOTE | ~2025-03-08 | CT_ITS ---
EXAMINATION:CT lung screening DATE: 03/08/2025 11:25 INDICATION: Personal history of nicotine dependence. TECHNIQUE: Computed tomography (CT) of the chest was performed without intravenous contrast. Automated exposure control and iterative reconstruction technique were employed. The dose-length product (DLP) was 169.90 mGy-cm. COMPARISON: Chest CT 02/09/2024, CT abdomen and pelvis 02/23/2024 FINDINGS: There is moderate emphysema. There is a stable 6 mm nodule in right lower lobe. There is a 3 mm nodule in left upper lobe. No pleural effusion. The heart size is normal. There are coronary artery calcifications. No pericardial effusion. There is a 16 mm mass in the left adrenal gland measuring low attenuation, consistent with an adenoma. There is mild thoracic spondylosis. There is a chronic burst fracture of T8 vertebral body with 3/5 loss of height. IMPRESSION: 1. Lung-RADS category 2: Benign appearance or behavior. Continue annual screening with noncontrast low-dose chest CT in 12 months. Reviewed, dictated and finalized at location E. IMPRESSION: 1. Lung-RADS category 2: Benign appearance or behavior. Continue annual screeni ng with noncontrast low-dose chest CT in 12 months.
== END 2025-03-08 11:12 | disposition home or self-care (01) ==
LOC: MICIMG 11:11
PROVIDERS: PCP Internal Medicine; Visit Provider Internal Medicine
DX: Z12.2 Encounter for screening for malignant neoplasm of respiratory organs (principal); Z87.891 Personal history of nicotine dependence
CPT/HCPCS: 71271